=== PATIENT | female | born 1970 | race Caucasian/White ===

== ENCOUNTER 2023-09-14 10:33 | Emergency (ER) | payer OTHER, SELFPAY ==
[2023-09-14 10:35] VITALS: BP 208/95; PULSE 96; RESP 14; TEMP 36.6; O2SAT 94; BMI 29.2
[2023-09-14 11:49] VITALS: BP 160/88
[2023-09-14] MEDS: LIDOCAINE 1% 20 ML INJ (12:03)
[2023-09-14] MEDS: HYDROMORPHONE 2 MG TABLET PO (12:29)
[2023-09-14] MEDS: ONDANSETRON 4 MG ODT SL (12:32)
--- NOTE | 2023-09-14 12:32 | ED_ITS ---
<Statement entered by Tom Aguiar MD - 09/14/23 20:24> I personally examined this patient and performed bedside ultrasound confirming cutaneous abscess HPI - Skin/Abscess/Foreign Bdy General Chief complaint: Skin/Abscess/Foreign Body Stated complaint: infection under LT breast Time Seen by Provider: 09/14/23 11:31 Source: patient Mode of arrival: Ambulatory Limitations: no limitations History of Present Illness HPI narrative: 53-year-old female presents for evaluation of painful lump under her left breast. She states there has been a small lump in this area since May of this year. It was never painful or tender. Then last week it suddenly became red and tender about the size of a ?jelly mccollum.She saw her provider 4 days ago and was given Keflex to take at 1000 mg b.i.d.. Things have not improved in fact they have gotten quite a bit worse with a lot of pain made it difficult to sleep last night, tenderness, increased swelling of the area. She denies fever nausea vomiting diarrhea no chest pain shortness of breath no extremity swelling. She has no underlying conditions such as diabetes or compromised immunity. She has a remote history of MRSA infection about 10 years ago. Related Data Previous Rx's Medication Instructions Recorded hydromorphone 2 mg tablet 2 mg PO Q6H PRN pain #10 tabs 09/14/23 (Dilaudid) ondansetron 8 mg disintegrating 8 mg PO Q12H PRN nausea and 09/14/23 tablet vomiting #10 tabs sulfamethoxazole 800 1 tab PO BID #20 tabs 09/14/23 mg-trimethoprim 160 mg tablet (Bactrim DS) Allergies Allergy/AdvReac Type Severity Reaction Status Date / Time codeine Allergy Verified 09/14/23 10:37 Review of Systems Review of Systems ROS Unobtainable: All systems reviewed & are unremarkable except as noted in HPI and below Patient History Social History Smoking Status: Unknown if ever smoked Smoking Status: Unknown if ever smoked alcohol intake frequency: holidays/special occasions only Substance Use Type: marijuana Exam Narrative Exam Narrative: Breast exam: Breasts are symmetrical without obvious deformities no skin retractions no dimpling. Nipples and areolas without defects. Beneath the left breast at the junction between the breast tissue and chest, there is a 2.5 x 1.5 cm tender firm, fluctuant, indurated area of erythema. No lymphadenopathy. Initial Vital Signs Initial Vital Signs: Vital Signs Temperature 97.9 F 09/14/23 10:35 Pulse Rate 96 H 09/14/23 10:35 Respiratory Rate 14 09/14/23 10:35 Blood Pressure 208/95 H 09/14/23 10:35 Pulse Oximetry 94 09/14/23 10:35 Oxygen Delivery Method Room Air 09/14/23 10:35 Const General: cooperative and healthy appearing [facility] Head: normal to inspection Ears: hearing grossly normal bilaterally Face and sinus: normal facial exam Eyes General: Yes appearance normal, both eyes and all related structures EOM: EOM intact bilaterally Neck Neck: normal visual inspection Resp Effort & Inspection: normal respiratory effort Cardio Rate: regular rate Rhythm: regular rhythm Neuro General: patient alert Extrem General: normal to inspection Procedures Abscess I/D I&D #1: Site: chest Side (if applicable): left Local Anesthetic: lidocaine 1% Amount of anesthesia used (mL): 5 Technique: incised with #11 blade Amount of fluid expressed (mL): 1 Irrigation: No Packing used?: plain Course Orders Ordered: ED Orders 09/14/23 12:26 Wound Culture and Gram Stain Stat Discontinued Medications Hydromorphone HCl (Hydromorphone 2 Mg Tablet) 2 mg PO NOW ONE Stop: 09/14/23 12:26 Last Admin: 09/14/23 12:29 Dose: 2 mg Documented By: CONSUELO Lidocaine HCl (Lidocaine 1% 20 Ml) 20 ml INJ INTRA-OP ONE Stop: 09/14/23 12:00 Last Admin: 09/14/23 12:03 Dose: 20 ml Documented By: CONSUELO Ondansetron HCl (Ondansetron 4 Mg Odt) 4 mg SL NOW ONE Stop: 09/14/23 12:31 Last Admin: 09/14/23 12:32 Dose: 4 mg Vital Signs Vital signs: Vital Signs - 8 hr 09/14/23 10:35 09/14/23 11:49 09/14/23 12:58 Temperature 97.9 F 98.5 F Pulse Rate 96 H 79 Respiratory Rate 14 16 Blood Pressure 208/95 H 160/88 H 148/84 H Pulse Oximetry 94 97 Oxygen Delivery Method Room Air Room Air MDM - Skin/Abscess/Foreign Bdy Differential Diagnosis Differential diagnosis: Likely abscess of skin or subcutaneous tissue Condition is at treatment goal?: Yes Imaging Data ultrasound: My Impression: Bedside ultrasound was performed. Superficial abscess noted. MDM Narrative Medical decision making narrative: Discussed the I and D procedure with patient and family members and they agree to proceed. Patient was also seen by Dr. Aguiar for the bedside ultrasound. We discussed that very often these types of abscesses resolved well with incision and drainage, however given the surrounding cellulitic changes and her past history of MRSA we have asked her to change antibiotic from Keflex to Septra. Patient agrees with the plan. Case was discussed with Dr. Aguiar who agrees with the assessment and plan. Discharge Plan Departure Patient Disposition: Home Clinical Impression: Abscess of skin or subcutaneous tissue Instructions: DI for Incision and Drainage of a Skin Abscess, DI for Skin Abscess Activity Restrictions/Additional Instructions: Today you had an Incision and Drainage of Abscess: The involved area was prepped with ChloraPrep. Local anesthesia was achieved using 4 cc lidocaine. A linear incision was made along the length of fluctuance using a surgical blade. There was less than 1 cc of pus drained from the wound. The wound was probed and small loculations were opened. There was minimal bleeding. Incision was lightly packed with half-inch sterile gauze and a dressing applied. We would like you to stop taking the Keflex and start taking Bactrim DS twice a day for 7 days. This antibiotic better covers for MS RA. Keep the wound dry and covered until you see your provider on Sunday. Take your pain medication every 4-6 hours if needed. You can place an ice pack over the area today for comfort. Once he starts feeling better a warm compress can also help with healing. It was a pleasure to take care of you today. Prescriptions: New hydromorphone [Dilaudid] 2 mg tablet 2 mg PO Q6H PRN (Reason: pain) Qty: 10 0RF sulfamethoxazole-trimethoprim [Bactrim DS] 800-160 mg tablet 1 tab PO BID Qty: 20 0RF ondansetron 8 mg tablet,disintegrating 8 mg PO Q12H PRN (Reason: nausea and vomiting) Qty: 10 0RF Stand Alone Forms: Patient Portal/API
[2023-09-14 12:58] VITALS: BP 148/84; PULSE 79; RESP 16; TEMP 36.9; O2SAT 97
== END 2023-09-14 12:59 | disposition home or self-care (01) ==
PROVIDERS: Emergency Provider Physician Assistant
DX: L02.213 Cutaneous abscess of chest wall (principal)
CPT/HCPCS: 10060; 87070; 87075; 87077; 87186; 87205; 99283